=== PATIENT | female | born 1965 | race African-American/Black ===

== ENCOUNTER 2022-11-16 12:20 | Emergency (ER) | payer MEDICAID, SELFPAY ==
[2022-11-16 12:49] VITALS: BP 138/88; PULSE 96; RESP 18; TEMP 36.6; O2SAT 97
--- NOTE | 2022-11-16 13:44 | ED.SKABFB ---
HPI - Skin/Abscess/Foreign Bdy General Chief complaint: Skin/Abscess/Foreign Body Stated complaint: Infection Time Seen by Provider: 11/16/22 13:26 History of Present Illness HPI narrative: This is a 57-year-old female who presents to the emergency department requesting evaluation of surgical wound after breast lift. Patient states she underwent the procedure approximately 2 weeks ago. Initially she noted redness with purulent appearing drainage. She discussed this with her surgeon and was reassured. Today she presents with continued drainage from both breasts, the right greater than the left. She denies fevers, chills, chest pain or shortness of breath Related Data Allergies Allergy/AdvReac Type Severity Reaction Status Date / Time No Known Allergies Allergy Verified 11/16/22 12:56 Review of Systems Review of Systems: CONSTITUTIONAL: Denies fever, chills, or sweats. CARDIOVASCULAR: Denies chest pain, palpitations, or edema. RESPIRATORY: Denies cough or dyspnea. GASTROINTESTINAL: Denies abdominal pain, nausea, vomiting, or diarrhea. SKIN: Purulent drainage from bilateral breast wounds. Denies rash or itching. MUSCULOSKELETAL: Denies back pain, joint pain, or myalgia. PSYCHIATRIC: Denies anxiety or depression. [facility] Surgical History Surgical History (Updated 11/16/22 @ 13:52 by Josh Alexis MD) History of breast lift Social History Social History (Updated 11/16/22 @ 13:53 by Josh Alexis MD) Smoking status: Never smoker Alcohol intake: current Substance use: never Exam Narrative: GENERAL: Well-developed, well-nourished, and in no acute distress. HEAD: Normocephalic, atraumatic. EYES: PERRLA and EOMI. CHEST: Clear to auscultation. No respiratory distress. No wheezes rales or rhonchi. (Breast exam chaperoned by female RN Brandie) midline inferior surgical wounds and transverse surgical wounds consistent with breast left are noted bilaterally. There is a small amount of purulent drainage in the inframamillary fold at the junction of the 2 wounds in the right breast. There is no noted drainage of the left breast. The surrounding tissue is not erythematous. There is no noted bleeding. There are some granulation tissue with otherwise normal-appearing healing. HEART: Regular rate and rhythm. No murmur heard. Normal peripheral pulses. ABDOMEN: Soft, nontender, nondistended, normal active bowel sounds. EXTREMITIES: Normal range of motion. No edema. SKIN: Warm, dry, no rash. NEURO: No focal deficits. Alert and oriented x3. PSYCH: Normal mood and affect. Course Course Emergency Course: 13:50 - Exam overall is consistent with normal post-op wound healing. However, in the presence of continued purulent drainage, will treat for wound infection. I advised the patient follow up with her surgeon. Discussed return and emergency precautions including signs/symptoms of sepsis and respiratory distress. The patient voiced understanding and is comfortable with the plan. All questions answered to her satisfaction. Vital Signs Vital signs: Vital Signs Temperature 97.8 F 11/16/22 12:49 Pulse Rate 96 11/16/22 12:49 Respiratory Rate 18 11/16/22 12:49 Blood Pressure 138/88 11/16/22 12:49 Pulse Oximetry 97 11/16/22 12:49 Oxygen Delivery Room Air 11/16/22 12:49 Temperature 97.8 F 11/16/22 12:49 Pulse Rate 90 11/16/22 14:01 Respiratory Rate 17 11/16/22 14:01 Blood Pressure 133/82 11/16/22 14:01 Pulse Oximetry 99 11/16/22 14:01 Oxygen Delivery Room Air 11/16/22 12:49 MDM - Skin/Abscess/Foreign Bdy MDM Narrative Medical decision making narrative: Plan: Antibiotics, surgery follow-up Differential Diagnosis Differential diagnosis: Likely cellulitis and other (Surgical wound infection, normal wound healing, other) Discharge Plan Discharge Clinical Impression: Healing of postoperative wound, Cellulitis Patient Disposition: Home, Self-Care Condition:
[2022-11-16 14:01] VITALS: BP 133/82; PULSE 90; RESP 17; O2SAT 99
== END 2022-11-16 14:02 | disposition home or self-care (01) ==
PROVIDERS: Emergency Provider Preventive Medicine Aerospace Medicine
DX: T81.49XA Infection following a procedure, other surgical site, initial encounter (principal); L03.319 Cellulitis of trunk, unspecified
CPT/HCPCS: 99283

== ENCOUNTER 2023-06-26 10:13 | Emergency (ER) | payer MEDICAID, SELFPAY ==
[2023-06-26 10:14] VITALS: BP 120/78; PULSE 78; RESP 16; TEMP 36.9; O2SAT 98
--- NOTE | 2023-06-26 10:27 | ED.GENADULT ---
HPI - General Adult General Chief complaint: Unspecified <Juan Diego Whittington APRN - Last Filed: 06/26/23 11:41> Stated complaint: wants KOMAL drain removed <Juan Diego Whittington APRN - Last Filed: 06/26/23 11:41> Time Seen by Provider: 06/26/23 10:27 <Juan Diego Whittington APRN - Last Filed: 06/26/23 11:41> Source: patient <Juan Diego Whittington APRN - Last Filed: 06/26/23 11:41> Mode of arrival: ambulatory <Juan Diego Whittington APRN - Last Filed: 06/26/23 11:41> Limitations: no limitations <Juan Diego Whittington APRN - Last Filed: 06/26/23 11:41> History of Present Illness HPI narrative: Josy is a 57-year-old female patient presenting to the ER today requesting to have her KOMAL drain removed. Patient has KOAML drain to the left pelvis from a abdominal wall plasty that was done on June 06. Patient reports that she has had 26 mL of drainage over the last 24 hours. Has a small hole to the distal tube that patient repaired with super glue and tape. She contacted the after hours line for [facility] and spoke with the nurse who recommend she come in and have the drain removed. <Juan Diego Whittington APRN - Last Filed: 06/26/23 11:41> Related Data Allergies/adverse reactions: Allergies Allergy/AdvReac Type Severity Reaction Status Date / Time No Known Allergies Allergy Verified 11/16/22 12:56 <Juan Diego Whittington APRN - Last Filed: 06/26/23 11:41> Review of Systems Review of Systems: Pertinent positives per HPI. Patient denies any fever, chills, rash, headache, visual changes, dizziness, cough, runny nose, sore throat, shortness of breath, chest pain, palpitations, nausea, vomiting, diarrhea, constipation, abdominal pain, or any urinary issues. <Juan Diego Whittington APRN - Last Filed: 06/26/23 11:41> [facility] Surgical History Surgical History: Surgical History (Updated 11/16/22 @ 13:52 by Josh Alexis MD) History of breast lift <Juan Diego Whittington APRN - Last Filed: 06/26/23 11:41> Social History Social History: Social History (Updated 11/16/22 @ 13:53 by Josh Alexis MD) Smoking status: Never smoker Alcohol intake: current Substance use: never <Juan Diego Whittington APRN - Last Filed: 06/26/23 11:41> Comments At the time of my signature, I reviewed and agree with the nursing past medical, surgical, social, and family history. There is no relevant family history pertinent to the patient complaint. <Juan Diego Whittington APRN - Last Filed: 06/26/23 11:41> Exam Narrative: General: Well-developed, well nourished, in no apparent distress Head: Normocephalic, atraumatic. Cardio: Regular rate and rhythm, s1 and s2 normal, no murmur appreciated. Resp: Clear to auscultation bilaterally, no rhonchi, rales, wheezing or rubs. Integumentary: [place], warm, and dry, intact without lesion, no rashes. J/p drain to the left pelvis- 10ml of serous fluid removed from j/p drain prior to removal. No redness, swelling, erythema, or purulent discharge seen. <Juan Diego Whittington APRN - Last Filed: 06/26/23 11:41> Course Course Emergency Course: Portions of this record may have been created with voice recognition software. <Juan Diego Whittington APRN - Last Filed: 06/26/23 11:41> MICROBIOLOGY SUPERVISOR/PA Physician Supervision For this patient encounter, I reviewed the MICROBIOLOGY SUPERVISOR or PA documentation, treatment plan, and medical decision making; and I had [id number] time with this patient. <Haroldo Alves MD - Last Filed: 06/26/23 19:17> Vital Signs Vital signs: Vital Signs Temperature 98.5 F 06/26/23 10:14 Pulse Rate 78 06/26/23 10:14 Respiratory Rate 16 06/26/23 10:14 Blood Pressure 120/78 06/26/23 10:14 Pulse Oximetry 98 06/26/23 10:14 Oxygen Delivery Room Air 06/26/23 10:14 Temperature 98.5 F 06/26/23 10:14 Pulse Rate 78 06/26/23 10:14 Respiratory Rate 16 06/26/23 10:14 Blood Pressure 120/78 06/26/23 10:14 Pu
== END 2023-06-26 11:31 | disposition home or self-care (01) ==
PROVIDERS: Emergency Provider Nurse Practitioner Family
DX: Z48.03 Encounter for change or removal of drains (principal)
CPT/HCPCS: 99282

== ENCOUNTER 2023-12-30 09:25 | Emergency (ER) | payer MEDICAID, SELFPAY ==
[2023-12-30] VITALS (34 sets, daily range): BP systolic 90–140; BP diastolic 67–94; PULSE 64–73; RESP 16–18; TEMP 36.6–36.7; O2SAT 96–100
--- NOTE | ~2023-12-30 | CT_ITS ---
EXAMINATION: CT abdomen pelvis w con DATE: 12/30/2023 12:58 INDICATION: Right lower quadrant abdominal pain TECHNIQUE: Computed tomography (CT) of the abdomen and pelvis was performed with 100 mL Omnipaque-350 intravenous contrast. Automated exposure control and iterative reconstruction technique were employe d. The dose-length product was 620.11 mGy-cm. COMPARISON: None FINDINGS: Lung bases are clear. Heart size is normal. No pericardial or pleural effusion. Postoperative change of prior gastric bypass procedure with small sliding-type hiatal hernia. There is left upper quadrant small bowel intussusception which extends for 7 cm in length which appears beginning close proximity to the jejunojejunal anastomosis. There is a second more caudal intussusception in the left abdomen which extends for 3.5 cm in length. No dilated bowel to suggest obstruction. Normal appendix. There a re few scattered colonic diverticula without adjacent inflammatory stranding to suggest diverticuliti s. Liver, gallbladder, pancreas, spleen, bilateral adrenal glands and right kidney are normal. 8 mm l eft renal cyst. Postoperative changes along the anterior abdominal pelvic wall. There is a tiny fat-c ontaining left periumbilical ventral hernia. Bladder and bilateral adnexa are unremarkable. 5 x 4 cm fibroid in the posterior uterine body which anteriorly bows the endometrial complex. No free intraper itoneal gas or fluid. No pathologically enlarged abdominal or pelvic lymphadenopathy. Moderate and th oracic and lumbar spondylosis. IMPRESSION: 1. A couple nonobstructing small bowel intussusceptions in the left abdomen. 2. Status post Marietta-en-Y gastric bypass procedure with small sliding-type hiatal hernia. 3. Fibroid uterus. Reviewed, dictated and finalized at location A. IMPRESSION: 1. A couple nonobstructing small bowel intussusceptions in the left abdomen. 2. Status post Mari[place]-en-Y gastric bypass procedure with small sliding-type hiata l hernia. 3. Fibroid uterus.
[2023-12-30 11:59] LABS: Basophils Percent Auto 0.4 % (0.2-1.2); Eosinophils Absolute Auto 0.2 K/mm3 (0-0.3); Eosinophils Percent Auto 3.8 % (0-4.4); Hematocrit 43.3 % (37.0-47.0); Hemoglobin 14.8 g/dL (12.0-15.0); Immature Granulocyte Absolute 0.01 K/mm3 (0.00-0.031); Immature Granulocyte Percent A 0.2 % (0-0.5); Lymphocytes Absolute Auto 2.25 K/mm3 (0.9-3.2); Lymphocytes Percent Auto 41.1 % (18.3-44.2); Mean Corpuscular HGB Conc 34.2 g/dl (32-36); Mean Corpuscular Hemoglobin 29.2 pg (26-34); Mean Corpuscular Volume 85.4 fl (80-100); Mean Platelet Volume 8.8 fl (7.4-10.4); Monocytes Absolute Auto 0.4 K/mm3 (0.1-0.6); Monocytes Percent Auto 7.7 % (2.6-8.5); Neutrophils Absolute Auto 2.6 K/mm3 (1.3-6.7); Neutrophils Percent Auto 46.8 % (45.5-73.1); Platelet Count Result 232 k/mm3 (150-375); Red Blood Count 5.07 M/mm3 (4.2-5.4); Red Cell Distribution Width 13.7 % (11.5-14.5); White Blood Count 5.5 K/mm3 (4.5-10.0)
--- NOTE | 2023-12-30 12:01 | PC.NURSE ---
Spoke with patient, discussed last time she ate, which was [phone] on 12/29/2023
[2023-12-30 12:06] LABS: Appearance Urine Clear (Clear); Bacteria Urine None Seen /hpf; Bilirubin Urine Negative (Negative); Blood Urine Negative (Negative); Color Urine Yellow (Yellow); Glucose Urine UA Negative (Negative); Ketones Urine Negative (Negative); Leukocyte Esterase Ur Trace LEU/UL (Negative); Nitrate Urine Negative (Negative); Non Pathogenic Casts 0-2; Protein Urine Negative (Negative); RBC Urine 0-2 /hpf (0-2); Specific Grav Ur 1.011 (1.001-1.035); Squamous Epithelial Cell Urine None Seen /hpf (Few); Urobilinogen Urine 0.2 mg/dL (<2.0); WBC Urine 0-5 /hpf (0-3); pH Urine 5.5 (5.0-9.0)
[2023-12-30 12:11] LABS: Add Urine Microscopic? YES
[2023-12-30 12:12] LABS: Alanine Aminotransferase 30 U/L (6-35); Albumin Level 4.5 g/dL (3.5-5.1); Alkaline Phosphatase 103 U/L (38-126); Anion Gap 5 mmol/L (4-12); Aspartate Amino Transferase 31 U/L (14-36); Bilirubin,Total 0.6 mg/dL (0.2-1.3); Blood Urea Nitrogen 14 mg/dL (7-17); Calcium 9.6 mg/dL (8.4-10.2); Carbon Dioxide 28 mmol/L (22-30); Chloride 108 mmol/L (98-107); Estimated CRCL calculation 82 ml/min; Estimated Glomerular Filt Rate > 60; Glucose 88 mg/dL (65-110); Lipase 275 U/L (23-300); Potassium 4.1 mmol/L (3.4-5.0); Sodium 141 mmol/L (137-145)
--- NOTE | 2023-12-30 14:38 | ED.ABDPAIN ---
HPI - Abdominal Pain General Chief Complaint: Abdominal Pain Stated Complaint: LLQ pain Time Seen by Provider: 12/30/23 11:01 Source: patient Mode of arrival: ambulatory Limitations: no limitations History of Present Illness HPI narrative: 58-year-old with a history of gastric bypass [place]-en-Y surgery 2018 done at [facility] by Dr. Foss presents to the ER with the complaints of left lower abdominal pain for past 4 days. She denies any nausea or vomiting. She states that this morning she had severe pain in the left lower abdomen, she called her primary doctor recommended her to come to the ER. She denies any previous history of kidney stones or diverticulosis or diverticulitis. No history of fever or chills. Patient states that she had recent tummy tuck and she is thinking that could be from the muscle pain MD elicited complaint: abdominal pain Pertinent past history: none Onset (ago): day(s) (4) Location: LLQ Severity: moderate Quality: aching Radiation: LLQ Migration to: no migration Exacerbating factors: nothing Relieving factors: nothing Associated symptoms: denies other symptoms Related Data Allergies Allergy/AdvReac Type Severity Reaction Status Date / Time No Known Allergies Allergy Verified 12/30/23 09:28 Review of Systems Review of Systems: All systems reviewed & are unremarkable except as noted in HPI and below Constitutional: Constitutional: Reports no additional constitutional complaints Eyes: Eyes: Reports no additional eye complaints Cardiovascular: Cardiovascular: Reports no additional cardiovascular complaints Respiratory: Respiratory: Reports no additional respiratory complaints Gastrointestinal: Gastrointestinal: Reports as per HPI Musculoskeletal: Musculoskeletal: Reports no additional musculoskeletal complaints Neurologic: Reports system reviewed and no additional complaints, except as documented PMFSH Surgical History Surgical History (Updated 11/16/22 @ 13:52 by Josh Alexis MD) History of breast lift Social History Social History (Updated 11/16/22 @ 13:53 by Josh Alexis MD) Smoking status: Never smoker Alcohol intake: current Substance use: never Exam Narrative: GENERAL: Well-appearing, well-nourished, and in no acute distress. HEAD: Normocephalic, atraumatic. EYES: PERRLA and EOMI. ENT: Nares clear, no rhinorrhea or epistaxis. Mucous membranes moist. NECK: Supple. CHEST: Clear to auscultation. No respiratory distress. HEART: Regular rate and rhythm. No murmur heard. Normal peripheral pulses. ABDOMEN: Soft, Mild tenderness in the LLQ , nondistended . EXTREMITIES: Normal range of motion. No edema. SKIN: Warm, dry, no rash. NEURO: No focal deficits. Alert and oriented x3. PSYCH: Normal mood and affect. Course Course Emergency Course: Notified patient about her lab work, CT findings. I discussed with Dr. Sheridan recommended to be transferred to [facility] Spoke to Dr Mary Kay Turner at [facility] accepted the pt in transfer .keep her NPO , Vital Signs Vital signs: Vital Signs Temperature 36.6 C 12/30/23 09:26 Pulse Rate 73 12/30/23 09:26 Respiratory Rate 16 12/30/23 09:26 Blood Pressure 131/86 12/30/23 09:26 Pulse Oximetry 98 12/30/23 09:26 Oxygen Delivery Room Air 12/30/23 09:26 Temperature 36.6 C 12/30/23 09:26 Pulse Rate 73 12/30/23 09:26 Respiratory Rate 16 12/30/23 09:26 Blood Pressure 109/67 12/30/23 12:46 Pulse Oximetry 96 12/30/23 15:00 Oxygen Delivery Room Air 12/30/23 09:26 MDM - Abdominal Pain Differential Diagnosis Differential diagnosis: Likely abdominal pain, diverticulitis and small bowel obstruction Medical Records Attestation: I reviewed the patient's medical records. Lab Data Attestation: I reviewed the patient's lab results. 12/30/23 11:52 12/30/23 11:52 Labs: Lab Results 12/30/23 Range/Units 11:52 WBC 5.5 (4.5-10.0) K/mm3 RBC 5.07 (4.
--- NOTE | 2023-12-30 19:58 | PC.NURSE ---
1933- called and spoke with Adalgisa at [place] [id number] [facility] to let her know patient was en route to their facility at this time
== END 2023-12-30 19:20 | disposition short-term general hospital (02) ==
PROVIDERS: Physician Assistant; Emergency Provider Family Medicine
DX: K56.1 Intussusception (principal); Z98.84 Bariatric surgery status; D25.9 Leiomyoma of uterus, unspecified
CPT/HCPCS: 36415; 74177; 80053; 81001; 83690; 85025; 99285; Q9967

== ENCOUNTER 2024-06-02 21:48 | Emergency (ER) | payer MEDICAID, SELFPAY ==
--- NOTE | ~2024-06-02 | CT_ITS ---
EXAMINATION: CT abdomen pelvis w con DATE: 06/02/2024 23:56 INDICATION: Constipation and urinary retention. TECHNIQUE: Computed tomography (CT) of the abdomen and pelvis was performed with 100 mL Omnipaque-350 intravenous contrast. Automated exposure control and iterative reconstruction technique were employe d. The dose-length product was 669.04 mGy-cm. COMPARISON: 12/30/2023 FINDINGS: Discoid atelectasis in the right lower lobe. Heart size is normal. No pericardial or pleural effusion . Minimal amount of focal hepatic steatosis along the ligamentum teres. Gallbladder, spleen, pancreas , bilateral adrenal glands and right kidney are normal. 9 mm left renal cyst. Mullins catheter in the i ncompletely distended bladder. Fibroid uterus. Normal appendix. Small sliding-type hiatal hernia with postoperative change of prior [place]-en-Y gastric bypass procedure. There is an approximately 2 cm betty g intussusception of the inferior limb at the jejunojejunal anastomosis. Small amount of oral contras t material extends through a second nonobstructing small bowel intussusception measuring 6 cm in mick th located more proximally along the [place] limb No dilated bowel to suggest obstruction. There is flui d in the ascending colon transition to a large amount of stool throughout the more distal colon with 7.7 x 6.5 cm ball of stool the rectum. Surgical scar potentially related to prior section ex tending transversely across the anterior pelvic wall. No free intraperitoneal gas or fluid. There is stranding and a few small foci of gas in the soft tissues at the anteromedial aspect of the proximal thighs consistent with reported history of recent thigh plasty with liposuction. There are couple maty gical drains extending distally along the physis with likely distal tip of one of the drains the subc utaneous tissues at the medial proximal left thigh. Mild S-shaped curvature of the lumbar spine with moderate to severe spondylosis. IMPRESSION: 1. Large amount of colonic stool with some 0.7 cm ball of stool in the rectum consistent with constip ation with fecal impaction. 2. Status post gastric bypass procedure with a couple nonobstructing likely transient small bowel int ussusceptions, one along the [place] limb and the second at the distal a fragment limit the jejunojejuna l anastomosis. 3. Small sliding-type hiatal hernia. 4. Fibroid uterus. 5. Postoperative changes with a few foci of subcutaneous gas at the anteromedial proximal thighs cons istent with reported history of recent pyeloplasty with liposuction. 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 Large amount of colonic stool with some 0.7 cm ball of stool in the rectum c onsistent with constipation with fecal impaction. 2. Status post gastric bypass procedure with a couple nonobstructing likely tra nsient small bowel intussusceptions, one along the [place] limb and the second at the distal a fragment limit the jejunojejunal anastomosis. 3. Small sliding-type hiatal hernia. 4. Fibroid uterus. 5. Postoperative changes with a few foci of subcutaneous gas at the anteromedia l proximal thighs consistent with reported history of recent pyeloplasty with l iposuction.
[2024-06-02 21:50] VITALS: BP 114/73; PULSE 87; RESP 20; TEMP 36.6; O2SAT 100
[2024-06-02 22:25] LABS: BEDSIDEPREGUCG Negative (Negative)
[2024-06-02 22:29] VITALS: BP 127/81; PULSE 73; RESP 16; TEMP 36.6; O2SAT 99
[2024-06-02 22:36] LABS: Basophils Percent Auto 0.3 % (0.2-1.2); Eosinophils Absolute Auto 0.1 K/mm3 (0-0.3); Eosinophils Percent Auto 1.3 % (0-4.4); Hematocrit 29.7 % (37.0-47.0); Hemoglobin 10.4 g/dL (12.0-15.0); Immature Granulocyte Absolute 0.03 K/mm3 (0.00-0.031); Immature Granulocyte Percent A 0.4 % (0-0.5); Lymphocytes Absolute Auto 1.87 K/mm3 (0.9-3.2); Mean Corpuscular Hemoglobin 29.6 pg (26-34); Mean Corpuscular Volume 84.6 fl (80-100); Mean Platelet Volume 8.6 fl (7.4-10.4); Monocytes Absolute Auto 0.6 K/mm3 (0.1-0.6); Monocytes Percent Auto 8.8 % (2.6-8.5); Neutrophils Absolute Auto 4.6 K/mm3 (1.3-6.7); Neutrophils Percent Auto 63.2 % (45.5-73.1); Platelet Count Result 250 k/mm3 (150-375); Red Blood Count 3.51 M/mm3 (4.2-5.4); White Blood Count 7.2 K/mm3 (4.5-10.0)
[2024-06-02 22:39] LABS: Add Urine Microscopic? NO; Appearance Urine Clear (Clear); Bilirubin Urine Negative (Negative); Blood Urine Negative (Negative); Color Urine Yellow (Yellow); Glucose Urine UA Negative (Negative); Ketones Urine Negative (Negative); Leukocyte Esterase Ur Negative LEU/UL (Negative); Nitrate Urine Negative (Negative); Protein Urine Negative (Negative); Specific Grav Ur 1.011 (1.001-1.035); pH Urine 6.5 (5.0-9.0)
[2024-06-02 22:48] LABS: Alanine Aminotransferase 17 U/L (6-35); Albumin Level 3.6 g/dL (3.5-5.1); Alkaline Phosphatase 80 U/L (38-126); Anion Gap 5 mmol/L (4-12); Aspartate Amino Transferase 28 U/L (14-36); Bilirubin,Total 0.8 mg/dL (0.2-1.3); Blood Urea Nitrogen 12 mg/dL (7-17); Calcium 8.5 mg/dL (8.4-10.2); Carbon Dioxide 32 mmol/L (22-30); Chloride 101 mmol/L (98-107); Estimated CRCL calculation 98 ml/min; Estimated Glomerular Filt Rate > 60; Glucose 106 mg/dL (65-110); Potassium 3.2 mmol/L (3.4-5.0); Sodium 138 mmol/L (137-145)
[2024-06-02] MEDS: POTASSIUM CHLORIDE 20 MEQ ER TABLET 40 MEQ PO (23:09)
[2024-06-02] MEDS: SODIUM CHLORIDE 0.9% IV 1,000 ML 999 ML IV CONT (23:16)
--- NOTE | 2024-06-02 23:16 | ED.FEMALEGU ---
HPI - Female Genitourinary General Chief complaint: Urogenital-Female Stated complaint: unable to urinate Time Seen by Provider: 06/02/24 22:08 Source: patient Mode of arrival: ambulatory Limitations: no limitations History of Present Illness HPI Narrative: Patient is a 58 year old female who presents the ED with report of urinary retention. Patient reports she is able to urinate yesterday and this morning normally, but since this afternoon, has been unable to void. Feels the urge to go, but is unable to pass any urine. Feels very full and bloated in her lower abdomen. Has never had issues with urinary retention before. Reports she underwent thigh plasty with liposuction on 05/28 in [place]. She has been doing well since the surgery, but has been on narcotic pain medicine and has been constipated. Reports was able to pass small knots of stool yesterday and today but has not had a solid BM in several days. Denies nausea, vomiting, fevers, hematuria. Related Data Allergies Allergy/AdvReac Type Severity Reaction Status Date / Time No Known Allergies Allergy Verified 06/02/24 21:58 Review of Systems Review of Systems: All systems reviewed & are unremarkable except as noted in HPI. All systems reviewed & are unremarkable except as noted in HPI and below PMFSH Surgical History Surgical History History of breast lift Social History Social History Smoking status: Never smoker Alcohol intake: current Substance use: never Exam Narrative: GENERAL: Well appearing, obese with BMI of 32.8, non-toxic, in no acute distress. HEAD: Normocephalic, atraumatic. RESPIRATORY: Airway patent, respirations nonlabored. Clear to auscultation bilaterally, no rales, rhonchi, wheezing. CARDIOVASCULAR: Regular rate and rhythm without murmurs, rubs, or gallops. ABDOMINAL: Soft, mild tenderness throughout lower abdomen. No significant focal tenderness. Nondistended. Normoactive BS. MUSCULOSKELETAL: Moves all extremities. No gross deformities. SKIN: Warm, dry, normal color. NEURO: A&O X3. Speech clear. Cranial nerves II-XII grossly intact. Steady gait. No ataxic movements. PSYCHIATRIC: Appropriate mood and affect. Normal interaction. Course Vital Signs Vital signs: Vital Signs Temperature 97.9 F 06/02/24 21:50 Pulse Rate 87 06/02/24 21:50 Respiratory Rate 20 06/02/24 21:50 Blood Pressure 114/73 06/02/24 21:50 Pulse Oximetry 100 06/02/24 21:50 Oxygen Delivery Room Air 06/02/24 21:50 Temperature 98.1 F 06/03/24 02:28 Pulse Rate 91 06/03/24 02:28 Respiratory Rate 16 06/03/24 02:28 Blood Pressure 106/70 06/03/24 02:28 Pulse Oximetry 97 06/03/24 02:28 Oxygen Delivery Room Air 06/02/24 21:50 MDM - Female Genitourinary MDM Narrative Medical decision making narrative: Patient presented to ED with urinary retention. Recent surgery, also reporting constipation. Vital signs are stable upon arrival. Patient is afebrile here. Initial bladder scan showing greater than 800 mL of ladder and urine. Mullins catheter was placed. Patient feeling immensely better after catheter placement. Urinalysis is clear. No evidence of infection. Laboratory studies are otherwise fairly unremarkable as well. No leukocytosis. Hemoglobin in the 10 range. No recent records to compare to. Potassium 3.2, oral replacement given. Otherwise stable kidney function, stable electrolytes. Normal magnesium. CT scan of abdomen/pelvis was obtained to rule out obstructive process, determine severity of constipation as this may be contributing to urinary retention. CT showing rectosigmoid fecal impaction, moderate to large stool burden. Likely cause of retention. No bowel obstruction. No evidence of colitis. No obstructing uropathy. Discussed lab and imaging findings with patient. Discussed constipation management including enema. Patient is agreeable to this. She has had enema before. Attempted KEVIN but stool ball slightly higher up than is reachable. Patient tolerated enema very well. Had very large bowel movement afterwards and is feeling much better. Discussed continued constipation management at home. Patient would like to trial voiding without catheter. I do feel this is reasonable as I believe retention was acutely related to constipation today. Advised she will have to demonstrate she is able to void before discharge home otherwise she will require catheter placement again. Patient is in agreement with this. Patient was able to urinate w/o catheter after enema. Safe to d/c home w/o catheter. Given strict return precautions should sx's recur. Patient in agreement with plan. D/C in stable condition. Medical Records Attestation: I reviewed the patient's medical records. Lab Data Attestation: I reviewed the patient's lab results. 06/02/24 22:30 06/02/24 22:30 Labs: Lab Results 06/02/24 06/02/24 06/02/24 Range/Units 22:21 22:25 22:29 WBC (4.5-10.0) K/mm3 RBC (4.2-5.4) M/mm3 Hgb (12.0-15.0) g/dL Hct (37.0-47.0) % MCV (80-100) fl MCH (26-34) pg MCHC (32-36) g/dl RDW (11.5-14.5) % Plt Count (150-375) k/mm3 MPV (7.4-10.4) fl Immature Gran % (Auto) (0-0.5) % Neut % (Auto) (45.5-73.1) % Lymph % (Auto) (18.3-44.2) % [place] % (Auto) (2.6-8.5) % Eos % (Auto) (0-4.4) % Baso % (Auto) (0.2-1.2) % Lymph # (Auto) (0.9-3.2) K/mm3 [place] # (Auto) (0.1-0.6) K/mm3 Eos # (Auto) (0-0.3) K/mm3 Baso # (Auto) (0.0-0.1) K/mm3 Abs Immat Gran (auto) (0.00-0.031) K/mm3 Absolute Neuts (auto) (1.3-6.7) K/mm3 Absolute Nucleated RBC (0.0-0.012) K/mm3 Nucleated RBC % (0.0-0.2) % Sodium (137-145) mmol/L Potassium (3.4-5.0) mmol/L Chloride (98-107) mmol/L Carbon Dioxide (22-30) mmol/L Anion Gap (4-12) mmol/L BUN (7-17) mg/dL Creatinine (0.7-1.0) mg/dL Estim Creat Clear Calc ml/min Estimated GFR (59 - ) Glucose (65-110) mg/dL Calcium (8.4-10.2) mg/dL Magnesium 2.4 H (1.6-2.3) mg/dL Total Bilirubin (0.2-1.3) mg/dL AST (14-36) U/L ALT (6-35) U/L Alkaline Phosphatase (38-126) U/L Total Protein (6.3-8.2) g/dL Albumin (3.5-5.1) g/dL Urine Color Yellow (Yellow) Urine Appearance Clear (Clear) Urine pH 6.5 (5.0-9.0) Ur Specific [place] 1.011 (1.001-1.035) Urine Protein Negative (Negative) mg/dL Urine Glucose (UA) Negative (Negative) mg/dL Urine Ketones Negative (Negative) mg/dL Ur Blood (Man) Negative (Negative) Urine Nitrate Negative (Negative) Urine Bilirubin Negative (Negative) Urine Urobilinogen 1.0 (<2.0) mg/dL Leukocyte Esterase Rfl Negative (Negative) MICHAEL/UL POC Urine HCG, Qual Negative (Negative) 06/02/24 Range/Units 22:30 WBC 7.2 (4.5-10.0) K/mm3 RBC 3.51 L (4.2-5.4) M/mm3 Hgb 10.4 L D (12.0-15.0) g/dL Hct 29.7 L (37.0-47.0) % MCV 84.6 (80-100) fl MCH 29.6 (26-34) pg MCHC 35.0 (32-36) g/dl RDW 14.0 (11.5-14.5) % Plt Count 250 (150-375) k/mm3 MPV 8.6 (7.4-10.4) fl Immature Gran % (Auto) 0.4 (0-0.5) % Neut % (Auto) 63.2 (45.5-73.1) % Lymph % (Auto) 26.0 (18.3-44.2) % [place] % (Auto) 8.8 H (2.6-8.5) % Eos % (Auto) 1.3 (0-4.4) % Baso % (Auto) 0.3 (0.2-1.2) % Lymph # (Auto) 1.87 (0.9-3.2) K/mm3 [place] # (Auto) 0.6 (0.1-0.6) K/mm3 Eos # (Auto) 0.1 (0-0.3) K/mm3 Baso # (Auto) 0.0 (0.0-0.1) K/mm3 Abs Immat Gran (auto) 0.03 (0.00-0.031) K/mm3 Absolute Neuts (auto) 4.6 (1.3-6.7) K/mm3 Absolute Nucleated RBC 0.000 (0.0-0.012) K/mm3 Nucleated RBC % 0.0 (0.0-0.2) % Sodium 138 (137-145) mmol/L Potassium 3.2 L (3.4-5.0) mmol/L Chloride 101 (98-107) mmol/L Carbon Dioxide 32 H (22-30) mmol/L Anion Gap 5 (4-12) mmol/L BUN 12 (7-17) mg/dL Creatinine 0.50 L (0.7-1.0) mg/dL Estim Creat Clear Calc 98 ml/min Estimated GFR > 60 (59 - ) Glucose 106 (65-110) mg/dL Calcium 8.5 (8.4-10.2) mg/dL Magnesium (1.6-2.3) mg/dL Total Bilirubin 0.8 (0.2-1.3) mg/dL AST 28 (14-36) U/L ALT 17 (6-35) U/L Alkaline Phosphatase 80 (38-126) U/L Total Protein 7.0 (6.3-8.2) g/dL Albumin 3.6 (3.5-5.1) g/dL Urine Color (Yellow) Urine Appearance (Clear) Urine pH (5.0-9.0) Ur Specific [place] (1.001-1.035) Urine Protein (Negative) mg/dL Urine Glucose (UA) (Negative) mg/dL Urine Ketones (Negative) mg/dL Ur Blood (Man) (Negative) Urine Nitrate (Negative) Urine Bilirubin (Negative) Urine Urobilinogen (<2.0) mg/dL Leukocyte Esterase Rfl (Negative) MICHAEL/UL POC Urine HCG, Qual (Negative) Imaging Data Attestation: I personally reviewed and interpreted this imaging study as follows: Radiologist's impression: STAT RAD CT abd/pelvis: Impression: Rectosigmoid fecal impaction. Moderate to large stool burden throughout the colon. No bowel obstruction. Status post [place]-en-Y gastric bypass. Indwelling Mullins catheter within incompletely decompressed urinary bladder. No hydronephrosis or nephrolithiasis. Discharge Plan Discharge Clinical Impression: Constipation, Acute urinary retention, Fecal impaction Patient Disposition: Home, Self-Care Condition: Stable Instructions: Antibiotic Form, Constipation (ED), High Fiber Diet (ED), Acute Urinary Retention in Women (ED) Additional Instructions: Recommend MiraLax and Dulcolax recently over the next 1 week for constipation. Stay very well hydrated. Recommend high-fiber diet. Recommend gentle movements throughout the day/staying active as much as possible. Follow-up with your primary care doctor for further evaluation as needed. Return to the ED if you experience worsening or severe symptoms, severe pain, difficulty urinating or recurrent retention, blood in urine, rectal bleeding, unable to keep down food or drink, fevers, or any other symptoms of concern. Prescriptions: No Action clindamycin HCl 150 mg capsule 450 mg PO Q8H 7 Days Qty: 63 0RF Follow-up/Referrals: PHYSICIAN,RATER ASSOCIATE [Primary Care Provider] - Time of Disposition: 01:21
[2024-06-02 23:26] LABS: Magnesium 2.4 mg/dL (1.6-2.3)
[2024-06-02 23:32] VITALS: BP 122/68; PULSE 69; RESP 14; TEMP 36.4; O2SAT 99
[2024-06-03 00:33] VITALS: BP 123/82; PULSE 86; RESP 16; TEMP 36.7; O2SAT 95
[2024-06-03] MEDS: BISACODYL 5 MG TABLET EC PO (01:21)
[2024-06-03] MEDS: polyethylene glycoL 3350 17 GM POWD.PACK PO (01:21)
[2024-06-03 01:39] VITALS: BP 119/75; PULSE 97; RESP 16; TEMP 36.6; O2SAT 99
[2024-06-03 02:28] VITALS: BP 106/70; PULSE 91; RESP 16; TEMP 36.7; O2SAT 97
== END 2024-06-03 02:53 | disposition home or self-care (01) ==
PROVIDERS: Emergency Provider Physician Assistant
DX: R33.9 Retention of urine, unspecified (principal); K59.00 Constipation, unspecified
CPT/HCPCS: 36415; 74177; 80053; 81003; 81025; 83735; 85025; 96360; 99284; A9270; J7030; Q9967

== ENCOUNTER 2024-06-06 07:45 | Emergency (ER) | payer MEDICAID, SELFPAY ==
[2024-06-06 07:55] VITALS: BP 114/71; PULSE 66; RESP 16; TEMP 36.4; O2SAT 100
--- NOTE | 2024-06-06 08:36 | ED.GENADULT ---
HPI - General Adult General Chief complaint: Recheck/Abnormal Lab/Rx Stated complaint: requesting KOMAL drains be removed Time Seen by Provider: 06/06/24 08:16 History of Present Illness HPI narrative: This is a 58-year-old female requesting that 2 KOMAL drains be removed from her thighs After a cosmetic procedure. Patient had surgery performed by in [place]. No other complaints. Related Data Allergies Allergy/AdvReac Type Severity Reaction Status Date / Time No Known Allergies Allergy Verified 06/02/24 21:58 [facility] Surgical History Surgical History History of breast lift Social History Social History Smoking status: Never smoker Alcohol intake: current Substance use: never Exam Narrative: APPEARANCE: No apparent distress. Head: atraumatic. EYES: EOMI, NOSE: Atraumatic NECK: Trachea midline RESPIRATORY: No increased rate of breathing CARDIOVASCULAR: RRR, ABDOMINAL: Non-distended MUSCULOSKELETAl: Both thighs wrapped in Bowen bandage wrap with drains attached to KOMAL drains. NEURO: Alert. Moving 4/4 extremities SKIN:: Warm, dry. Normal color PSYCHIATRIC: Normal affect Course Vital Signs Vital signs: Vital Signs Temperature 97.6 F 06/06/24 07:55 Pulse Rate 66 06/06/24 07:55 Respiratory Rate 16 06/06/24 07:55 Blood Pressure 114/71 06/06/24 07:55 Pulse Oximetry 100 06/06/24 07:55 Temperature 97.6 F 06/06/24 07:55 Pulse Rate 66 06/06/24 07:55 Respiratory Rate 16 06/06/24 07:55 Blood Pressure 114/71 06/06/24 07:55 Pulse Oximetry 100 06/06/24 07:55 Medical Decision Making MDM Narrative Medical decision making narrative: -Course: 58-year-old female requesting that her KOMAL drains be removed from a cosmetic surgery performed in [place]. I read the printed letter from her surgeon that said that if her drains were draining less than 25 cc in a 24 hour period for 2-3 days they can be removed. After reviewing the patient's drainage she is still draining too much fluid. This was explained to the patient and she now has a better understanding of what the surgeon was describing. I also told her that is highly atypical for in ER to be managing post-surgical patients in this way. I recommended that she see her surgeon in [place] for all care in regards to this surgery. Vital Signs Vital Signs: Vital Signs Temperature 97.6 F 06/06/24 07:55 Pulse Rate 66 06/06/24 07:55 Respiratory Rate 16 06/06/24 07:55 Blood Pressure 114/71 06/06/24 07:55 Pulse Oximetry 100 06/06/24 07:55 Temperature 97.6 F 06/06/24 07:55 Pulse Rate 66 06/06/24 07:55 Respiratory Rate 16 06/06/24 07:55 Blood Pressure 114/71 06/06/24 07:55 Pulse Oximetry 100 06/06/24 07:55 Discharge Plan Discharge Clinical Impression: Encounter for post surgical wound check Patient Disposition: Home, Self-Care Condition: Stable Instructions: Antibiotic Form, Seroma (DC) Additional Instructions: Please follow-up with your surgeon for all surgical follow-up and complications. Return to the ED if you develop fevers, severe pain or if your condition is getting worse. Prescriptions: No Action clindamycin HCl 150 mg capsule 450 mg PO Q8H 7 Days Qty: 63 0RF Follow-up/Referrals: PHYSICIAN NOT ON STAFF,NONSTAFF [Primary Care Provider] -
== END 2024-06-06 09:17 | disposition home or self-care (01) ==
LOC: ANHED 08:54
PROVIDERS: Emergency Provider Emergency Medicine
DX: Z48.03 Encounter for change or removal of drains (principal)
CPT/HCPCS: 99281

== ENCOUNTER 2024-07-05 09:05 | Emergency (ER) | payer MEDICAID, SELFPAY ==
--- NOTE | ~2024-07-05 | US_ITS ---
EXAMINATION: US venous doppler [facility] DATE: 07/05/2024 12:04 INDICATION: Left lower limb pain and swelling TECHNIQUE: Grayscale ultrasound images without and with compression and Doppler ultrasound images of the left lower extremity veins were obtained. COMPARISON: None. FINDINGS: The visualized portions of left common femoral vein, profunda (deep) femoral vein, femoral vein, popl iteal vein, peroneal veins, posterior tibial veins, gastrocnemius vein and greater saphenous vein out flow are patent. IMPRESSION: 1. No deep venous thrombosis in the left lower limb. Reviewed, dictated and finalized at location B. AL APPLIANCE REPAIRER
[2024-07-05 09:06] VITALS: BP 142/95; PULSE 81; RESP 18; TEMP 36.6; O2SAT 100
--- NOTE | 2024-07-05 11:39 | ED.EXTPRO ---
HPI - Extremity Problem General Chief complaint: Extremity Problem,Nontraumatic Stated complaint: L leg pain, swelling Time Seen by Provider: 07/05/24 10:57 Source: patient Mode of arrival: ambulatory Limitations: no limitations History of Present Illness HPI Narrative: This is a 58-year-old female that presents to the emergency department for left lower extremity pain. Reports last month she had skin removal and liposuction to the bilateral thighs. Over the last couple of days she has noticed that her left lower leg is painful. Reports some swelling to the area. Denies fevers. Related Data Allergies Allergy/AdvReac Type Severity Reaction Status Date / Time No Known Allergies Allergy Verified 06/02/24 21:58 Review of Systems Review of Systems: CONSTITUTIONAL: Denies fever SKIN: Denies rash MUSCULOSKELETAL: Reports myalgia. NEUROLOGIC: Denies numbness All systems reviewed & are unremarkable except as noted in HPI and below PMFSH Past Medical History Medical History (Updated 07/06/24 @ 00:00 by [facility]) No active medical problems Surgical History Surgical History History of breast lift Social History Social History Smoking status: Never smoker Alcohol intake: current Substance use: never Exam Narrative: GENERAL: Well-appearing, well-nourished, and in no acute distress. HEAD: Normocephalic, atraumatic. EYES: EOMI. EXTREMITIES: Normal range of motion. Mild edema about the left calf. No overlying erythema. Incisions are clean, dry intact to the bilateral inner thighs. Normal DP pulses SKIN: Warm, dry, no rash. NEURO: No focal deficits. Alert and oriented x3. PSYCH: Normal mood and affect Course Vital Signs Vital signs: Vital Signs Temperature 97.9 F 07/05/24 09:06 Pulse Rate 81 07/05/24 09:06 Respiratory Rate 18 07/05/24 09:06 Blood Pressure 142/95 H 07/05/24 09:06 Pulse Oximetry 100 07/05/24 09:06 Oxygen Delivery Room Air 07/05/24 09:06 Temperature 97.4 F L 07/05/24 13:44 Pulse Rate 81 07/05/24 09:06 Respiratory Rate 18 07/05/24 13:44 Blood Pressure 142/95 H 07/05/24 09:06 Pulse Oximetry 100 07/05/24 09:06 Oxygen Delivery Room Air 07/05/24 09:06 MDM - Extremity (Nontraumatic) MDM Narrative Medical decision making narrative: Patient presents to the emergency department for lower extremity pain after recent surgery. She is afebrile and nontoxic appearing. She is neurovascularly intact. No recent injuries. Incisions appear well healing without signs of infection. Left lower extremity venous Doppler without evidence of DVT. Patient updated on workup. Instructed to have further follow-up with her surgeon. She was given warnings to return to the ER Imaging Data Radiologist's impression: ITS Impressions Venous Doppler Study 07/05/24 12:04 IMPRESSION: 1. No deep venous thrombosis in the left lower limb. Critical Care Time Critical Care Time Critical Care Time: No Discharge Plan Discharge Clinical Impression: Acute pain of left lower extremity Patient Disposition: Home, Self-Care Condition: Stable Instructions: Leg Pain (ED) Additional Instructions: Return to the ER if you experience fever, redness and swelling of your leg, weakness, numbness, or any other symptoms that are concerning to you The ultrasound of your leg did not show any blood clots Rest, use ice/heat, take anti-inflammatories (Aleve, Ibuprofen, Naproxen, etc) or Tylenol as needed for pain Follow up with your doctor for further care Patient Language: Irish Prescriptions: No Action clindamycin HCl 150 mg capsule 450 mg PO Q8H 7 Days Qty: 63 0RF Follow-up/Referrals: UNKNOWN,DOCTOR [Primary Care Provider] -
[2024-07-05 13:44] VITALS: RESP 18; TEMP 36.3
== END 2024-07-05 13:46 | disposition home or self-care (01) ==
PROVIDERS: Emergency Provider Physician Assistant
DX: M79.605 Pain in left leg (principal)
CPT/HCPCS: 93971; 99284